=== PATIENT | male | born 1955 | race Caucasian/White ===

== ENCOUNTER 2016-07-22 12:17 | Emergency (ER) | payer OTHER ==
[~2016-07-22] VITALS: Ht 175.3 cm; Wt 121.3 kg
[2016-07-22 12:18] VITALS: BP 127/70; PULSE 97; RESP 17; TEMP 100.6; O2SAT 97
[2016-07-22] MEDS ORDERED: SODIUM CHLORIDE 0.9% FLUSH 10 ML FLUSH IVF PRN (12:45)
[2016-07-22] MEDS ORDERED: methylPREDNISolone SOD SUCC 125 MG/2 ML VIAL IVP ONE (12:45)
[2016-07-22] MEDS: RESP: ALBUTEROL 2.5 MG/IPRATROPIUM 0.5 MG NEB (SCH) INH (13:06)
--- NOTE | 2016-07-22 13:15 | PD ---
HPI Chief Complaint: Fever Time Seen by Provider: 12:29 Travel History International Travel<30 days: Yes Contact w/Intl Traveler<30days: Yes Name of Country Traveled to: [place] / [place] - 3 WEEKS AGO Traveled to known affect area: Yes History of Present Illness HPI Patient is a 61-year-old male with history of COPD who presents emergency department with complaint of fever. Patient states that he was recently on vacation, going on a cruise throughout the [place]. While on the cruise patient developed flulike symptoms. Describes having body aches, subjective fevers and chills. Some cough that is primarily nonproductive. He had some intermittent diarrhea but nothing consistent. No vomiting. Since getting off a cruise a week ago patient had felt improved, and then his symptoms seemed to recur 2 days ago. He denies any nasal congestion, neck stiffness, abdominal pain or urinary symptoms. Daughter notes he is more wheezy than normal and has been using home nebulizer with some improvement. PFSH Past Medical History COPD: Yes Respiratory: Yes (COPD) Social History Tobacco Use: Yes (former tobacco smoker, now use vaporizer pen) Allergies-Medications (Allergen,Severity, Reaction): Coded Allergies: No Known Allergies (Unverified , 07/22/16) Reported Meds & Prescriptions Reported Meds & Active Scripts Active Levaquin (Levofloxacin) 750 Mg Tab 750 Mg PO DAILY 7 Days Albuterol Neb (Albuterol Sulfate) 2.5 Mg/3 Ml Neb 2.5 Mg NEB Q4HR NEB PRN Ventolin Hfa 18 GM Inh (Albuterol Sulfate) 90 Mcg/Act Aer 2 Puff INH Q4H PRN Avapro (Irbesartan) 300 Mg Tab 300 Mg PO DAILY Review of Systems Except as stated in HPI: all other systems reviewed are Neg Physical Exam Narrative GENERAL: Well-appearing male in no acute distress SKIN: Focused skin assessment warm/dry. HEAD: Normocephalic. EYES: No scleral icterus. No injection or drainage. ENT: Mucous membranes pink and moist. NECK: Supple without nuchal rigidity CARDIOVASCULAR: Regular rate and rhythm. No murmur appreciated. RESPIRATORY: No accessory muscle use. Wheezing and rhonchi right greater than left GASTROINTESTINAL: Abdomen soft, non-tender, nondistended. Obese MUSCULOSKELETAL: No obvious deformities. No edema. NEUROLOGICAL: Awake and alert. Motor grossly within normal limits. Normal speech. PSYCHIATRIC: Appropriate mood and affect; insight and judgment normal. Data Data Last Documented VS Vital Signs Date Time Temp Pulse Resp B/P Pulse Ox O2 Delivery O2 Flow Rate FiO2 07/22/16 13:26 98.6 99 18 136/75 07/22/16 13:26 95 Room Air Orders Complete Blood Count With Diff (07/22/16 12:37) Basic Metabolic Panel (Bmp) (07/22/16 12:37) Iv Access Insert/Monitor (07/22/16 12:37) Ecg Monitoring (07/22/16 12:37) Oximetry (07/22/16 12:37) Chest, Single Ap (07/22/16 12:37) Sodium Chloride 0.9% Flush (Ns Flush) (07/22/16 12:45) Methylprednisolone So Succ Inj (Solumedr (07/22/16 12:45) Albuterol-Ipratropium Neb (Duoneb Neb) (07/22/16 12:45) Acetaminophen (Tylenol) (07/22/16 13:30) Levofloxacin (Levaquin) (07/22/16 13:30) Labs Laboratory Tests Test 07/22/16 13:05 White Blood Count 6.2 TH/MM3 Red Blood Count 4.54 MIL/MM3 Hemoglobin 12.9 GM/DL Hematocrit 39.8 % Mean Corpuscular Volume 87.7 FL Mean Corpuscular Hemoglobin 28.5 PG Mean Corpuscular Hemoglobin 32.5 % Concent Red Cell Distribution Width 14.7 % Platelet Count 226 TH/MM3 Mean Platelet Volume 8.0 FL Neutrophils (%) (Auto) 78.1 % Lymphocytes (%) (Auto) 11.7 % Monocytes (%) (Auto) 9.4 % Eosinophils (%) (Auto) 0.3 % Basophils (%) (Auto) 0.5 % Neutrophils # (Auto) 4.8 TH/MM3 Lymphocytes # (Auto) 0.7 TH/MM3 Monocytes # (Auto) 0.6 TH/MM3 Eosinophils # (Auto) 0.0 TH/MM3 Basophils # (Auto) 0.0 TH/MM3 CBC Comment DIFF FINAL Differential Comment Sodium Level 133 MEQ/L Potassium Level 3.7 MEQ/L Chloride Level 102 MEQ/L Carbon Dioxide Level 24.2 MEQ/L Anion Gap 7 MEQ/L Blood Urea Nitrogen 17 MG/DL Creatinine 1.48 MG/DL Estimat Glomerular Filtration 48 ML/MIN Rate Random Glucose 96 MG/DL Calcium Level 8.1 MG/DL [facility] Medical Decision Making Medical Screen Exam Complete: Yes Emergency Medical Condition: Yes Medical Record Reviewed: Yes Differential Diagnosis 61-year-old male with history of COPD here with complaint of flulike symptoms, body aches, subjective fevers and chills, cough since going on then returning from a cruise. Differential includes viral syndrome, influenza, COPD exacerbation, pneumonia. Narrative Course Patient placed on monitor, IV established and blood obtained. Given 125 mg Solu -Medrol, DuoNeb 3, Tylenol. Portal chest x-ray obtained that by my read shows a right sided pneumonia. Patient treated with Levaquin. CBC, BMP unremarkable. Diagnosis Primary Impression: Right lower lobe pneumonia Qualified Code: J18.1 - Pneumonia of right lower lobe due to infectious organism Additional Impression: COPD (chronic obstructive pulmonary disease) Qualified Code: J44.9 - Chronic obstructive pulmonary disease, unspecified COPD type Referrals: Primary Care Physician 2 weeks Patient Instructions: General Instructions, Pneumonia (DC) Additional Instructions: Finish antibiotics as prescribed. Albuterol as needed. Follow-up with primary care provider in 2-4 weeks after antibiotic therapy for repeat chest x-ray to evaluate for resolution. Med/Other Pt SpecificInfo: Prescription(s) given Scripts Levofloxacin (Levaquin)750 Mg [id number] Mg PO DAILY 7 Days Ref 0 Prov:Angie Nieves MD 07/22/16 Albuterol Neb 2.5 Mg/3 Ml Neb2.5 Mg NEB Q4HR NEB PRN (SHORTNESS OF BREATH) #60 NEBULE Ref 0 Prov:Angie Nieves MD 07/22/16 Albuterol 18 GM Inh (Ventolin Hfa 18 GM Inh)90 Mcg/Act Aer2 Puff INH Q4H PRN ( SHORTNESS OF BREATH) #1 INHALER Ref 0 Prov:Angie Nieves MD 07/22/16 Irbesartan (Avapro)300 Mg [id number] Mg PO DAILY #30 TAB Ref 0 Prov:Angie Nieves MD 07/22/16 Disposition: 01 DISCHARGE HOME Condition: Stable Angie Nieves MD Jul 22, 2016 13:15 Angie Nieves MD Jul 22, 2016 13:15
--- NOTE | 2016-07-22 13:20 | RADRPT ---
EXAM DATE/TIME: 07/22/2016 12:44 [facility] COMPARISON: No previous studies available for comparison. INDICATIONS : Fever, cough, and congestion for two days. MEDICAL HISTORY : Chronic obstructive pulmonary disease. SURGICAL HISTORY : None. ENCOUNTER: Initial ACUITY: 2 days PAIN SCORE: 0/10 LOCATION: Bilateral chest FINDINGS: Approximate 5.2 cm airspace process is present right lower lobe probably pneumonia, however follow up is suggested to exclude an underlying mass. Heart and mediastinum are unremarkable for technique. CONCLUSION: Right lower lobe masslike consolidation most likely pneumonia, however follow up is suggested with re peat chest x-ray in 2-4 weeks after appropriate clinical therapy. Tien Arauz MD on July 22, 2016 at 13:18 Board Certified Radiologist. This report was verified electronically.
[2016-07-22] MEDS ORDERED: ALBU0.08 NEB (13:25)
[2016-07-22] MEDS ORDERED: LEVA750T PO ×2 (13:25→14:10)
[2016-07-22] MEDS ORDERED: VENTAER INH (13:25)
[2016-07-22] MEDS ORDERED: IRBE300T44 PO (13:25)
[2016-07-22 13:26] VITALS: BP 136/75; PULSE 99; RESP 18; TEMP 98.6
[2016-07-22 13:29] LABS: AUTOMATED NEUTROPHIL # 4.8 TH/MM3 (1.8-7.7); BASOPHIL % 0.5 % (0.0-2.0); EOSINOPHIL % 0.3 % (0.0-4.0); HEMATOCRIT 39.8 % (39.0-51.0); HEMO FLAGS DIFF FINAL; LYMPH % 11.7 % (9.0-44.0); LYMPHOCYTE # 0.7 TH/MM3 (1.0-4.8); MEAN CELL VOLUME 87.7 FL (80.0-100.0); MEAN CORPUSCULAR HEMOGLOBIN 28.5 PG (27.0-34.0); MEAN CORPUSCULAR HGB CONC 32.5 % (32.0-36.0); MONO % 9.4 % (0.0-8.0); NEUT % 78.1 % (16.0-70.0); PLATELET COUNT 226 TH/MM3 (150-450); RED BLOOD COUNT 4.54 MIL/MM3 (4.50-5.90); RED CELL DISTRIBUTION WIDTH 14.7 % (11.6-17.2); WHITE BLOOD COUNT 6.2 TH/MM3 (4.0-11.0)
[2016-07-22] MEDS ORDERED: ACETAMINOPHEN 500 MG CPLT PO ONE (13:30)
[2016-07-22] MEDS ORDERED: LEVOFLOXACIN 750 MG TAB PO ONE (13:30)
[2016-07-22 13:53] LABS: BICARBONATE 24.2 MEQ/L (21.0-32.0); POTASSIUM 3.7 MEQ/L (3.5-5.1)
== END 2016-07-22 14:20 | disposition home or self-care (01) ==
LOC: NEPE 12:17
DX: J18.1 Lobar pneumonia, unspecified organism (principal); J44.9 Chronic obstructive pulmonary disease, unspecified
CPT/HCPCS: 71010; 80048; 85025; 94640; 94664; 96374; 99285; J2930